=== PATIENT | female | born 1935 | race Caucasian/White ===

== ENCOUNTER 2023-01-22 13:12 | Day surgery (SDC) | payer MEDICARE ==
[2023-01-22] MEDS ORDERED: Decadron 4 MG INJ IV ONE (13:13)
[2023-01-22] MEDS ORDERED: LIDOCAINE HCL 1% 50 MG/5 ML VL PF IJ ONE (13:13)
[2023-01-22] MEDS ORDERED: Sodium Chloride 0.9(Preservative Free) 10 ML IJ ONE (13:13)
[2023-01-22] MEDS ORDERED: Depo-Medrol 40 MG/ML IM ONE (13:13)
[2023-01-22] MEDS ORDERED: DIPRIVAN 200 MG/20 ML IV ONE (16:06)
[2023-01-22] MEDS ORDERED: Lactated Ringers 1,000 ML IV ONE (16:31)
--- NOTE | 2023-01-22 17:04 | XRAY ---
Indication: Right L4-S1 transforaminal ALY. Intraoperative fluoroscopy provided for 24 seconds. 5 digital spot image submitted for interpretation demonstrates posterior needle tips projecting over the expected right L4 and L5 nerve roots. Small amount of contrast injected for needle tip placement. Correlate with intraoperative findings/report.
--- NOTE | 2023-01-22 17:07 | XRAY ---
Indication: Right piriformis injection. Intraoperative fluoroscopy provided for 10 seconds. Single digital spot image submitted for interpretation demonstrates posterior needle tip projecting over the expected right piriformis. Small amount of contrast injected for needle tip placement. Correlate with intraoperative findings/report.
--- NOTE | 2023-01-22 17:21 | XRAY ---
24 seconds of fluoroscopy was used in surgery for a right L4-S1 transforaminal ALY.
--- NOTE | 2023-01-22 17:21 | XRAY ---
10 seconds of fluoroscopy was used in surgery for a right piriformis injection.
== END 2023-01-22 16:38 | disposition home or self-care (01) ==
LOC: SDC-PAIN 13:12
PROVIDERS: ATTEND Psychiatry & Neurology Pain Medicine
DX: M54.16 Radiculopathy, lumbar region (principal); M79.18 Myalgia, other site; Z79.899 Other long term (current) drug therapy
CPT/HCPCS: 20552; 64483; 64484; 72100; 72170; 77002; 77003; 99100; J1030; J1100; J2001; J2704; Q9966

== ENCOUNTER 2023-03-05 09:35 | Day surgery (SDC) | payer MEDICARE ==
[2023-03-05] MEDS ORDERED: Depo-Medrol 40 MG/ML IM ONE (09:36)
[2023-03-05] MEDS ORDERED: BUPIVACAINE 0.5% VIAL IJ ONE (09:36)
[2023-03-05] MEDS ORDERED: DIPRIVAN 200 MG/20 ML IV ONE (11:53)
[2023-03-05] MEDS ORDERED: Lactated Ringers 1,000 ML IV ONE (15:01)
--- NOTE | 2023-03-05 20:46 | XRAY ---
Indication: Bilateral SI joint injection. Intraoperative fluoroscopy provided for 15 seconds. 4 digital spot image submitted for interpretation demonstrates posterior needle tip projecting over the expected left and right SI joint. Correlate with intraoperative findings/report.
--- NOTE | 2023-03-05 21:43 | XRAY ---
15 seconds of fluoroscopy was used in surgery for a bilateral sacroiliac joint injection.
== END 2023-03-05 12:17 | disposition home or self-care (01) ==
LOC: SDC-PAIN 09:35
PROVIDERS: ATTEND Psychiatry & Neurology Pain Medicine
DX: M46.1 Sacroiliitis, not elsewhere classified (principal)
CPT/HCPCS: 01992; 27096; 72202; 77002; 99100; G0260; J1030; J2704

== ENCOUNTER 2023-11-12 13:45 | Day surgery (SDC) | payer MEDICARE ==
[2023-11-12] MEDS ORDERED: BUPIVACAINE 0.5% VIAL IJ ONE (13:46)
[2023-11-12] MEDS ORDERED: Depo-Medrol 40 MG/ML IM ONE (13:46)
[2023-11-12] MEDS ORDERED: DIPRIVAN 200 MG/20 ML IV ONE (15:52)
[2023-11-12] MEDS ORDERED: Lactated Ringers 1,000 ML IV ONE (16:30)
--- NOTE | 2023-11-12 16:33 | XRAY ---
Indication: Left hip and greater trochanter bursa injection. Intraoperative fluoroscopy provided for 22 seconds. 2 digital spot image submitted for interpretation demonstrates needle tip projecting lateral to the left femur neck. Small amount of contrast collects around femur neck and lateral to greater trochanter for needle tip placement. Correlate with intraoperative findings/report.
--- NOTE | 2023-11-13 08:52 | XRAY ---
22 seconds of fluoroscopy was used in surgery for a left intra-articular hip and greater trochanteric bursa injection.
== END 2023-11-12 16:24 | disposition home or self-care (01) ==
LOC: SDC-PAIN 13:45
PROVIDERS: ATTEND Psychiatry & Neurology Pain Medicine
DX: M16.12 Unilateral primary osteoarthritis, left hip (principal)
CPT/HCPCS: 20610; 73502; 77002; J2704; Q9966

== ENCOUNTER 2024-01-18 15:07 | Emergency (ER) | payer MEDICARE ==
[2024-01-18] MEDS ORDERED: XYLOCAINE 1% HCL 20 ML MDV IJ ONE (15:08)
[2024-01-18 16:28] VITALS: TEMP 98.5
--- NOTE | 2024-01-18 18:42 | XRAY ---
CLINICAL HISTORY: pain COMPARISON: None. TECHNIQUE: Axial non-contrast CT scan of the brain was performed from the skull base to the high parietal region. One of the following dose reduction techniques were utilized for this exam: Automated exposure control, adjustment of the mA and/or kV according to patient size, use of iterative reconstruction. CTDI: 53.92 mGy, DLP: 964.1 mGy*cm. 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 No evidence of acute infarct, hemorrhage, or mass effect. Bilateral basal ganglia hyperdensities, likely nonspecific finding Ventricular System: Ventricles are normal in size and configuration. No evidence of hydrocephalus or ventricular enlargement. Subarachnoid Spaces: Normal sulci and cisterns. No evidence of subarachnoid hemorrhage or extra-axial fluid collections. Cerebellum and Brainstem: Normal size and density. No masses, lesions, or areas of abnormal signal. Orbits: Normal appearance of the optic nerves, and extraocular muscles. Post-surgical changes in both ocular globes. No evidence of orbital masses or abnormal signal. Sinuses: Clear paranasal sinuses. No evidence of sinusitis or mucosal thickening. Mastoid Air Cells: Clear mastoid air cells. No evidence of mastoiditis. Skull and Meninges: Normal skull morphology. In the posterior parietal soft tissues there is a 4-mm thick laminar subgaleal hematoma. IMPRESSION: 1. No acute intracranial findings. 2. No acute hemorrhagic pathology. 3. In the posterior parietal soft tissues there is a 4-mm thick laminar subgaleal hematoma. 4. Age-matched senile brain atrophic and chronic microvascular ischemic changes. Electronically Signed by: Latasha White MD. (01/18/2024 18:37:34 EDT)
--- NOTE | 2024-01-18 18:47 | ERPHSYRPT ---
- History of Present Illness Time Seen by Provider: 01/18/24 18:41 Source: patient, family Exam Limitations: no limitations Patient Subjective Stated Complaint: pt fell at her back patio hitting the back of her head on [place] and also injuring her left hip/upper leg Triage Nursing Assessment: Pt brought to the ER by her daughter, hypertensive, rates overall pain as 10/10, pt has fallen the past 3 days and does not usually fall, pt does not use anything for assistance in walking, laceration to the back of her head and pain to the left hip/upper leg, pulses normal, skin n/w/d, denies LOC, denies N&V, pt is not on blood thinners, doesn't appear to be in any distress Physician History: pt fell three times in past few days and daughter brought her in. No LOC. has lac back of head. No blood thinners has neck pain Discussed risk/benefit with pt and family of CT head and c spine, Left hip and x-ray cbc cmp, lactate, EKG, Trop, UA and they wish to proceed so these are ordered. results discussed. chest and abd nontender without peritoneal signs. Full ROM without pain, all ext except left hip fundi benign and visual hillman intact. Occurred: this afternoon Reason for Fall: unknown, lost balance, slipped, tripped, fell from standing pos Injuries/Pain Location: head, neck, lower extremity Loss of Consciousness: no loss of consciousness Quality: sharpness Severity of Pain-Max: moderate Severity of Pain-Current: moderate Modifying Factors: Improves With: immobilization, movement Associated Symptoms (Fall): denies symptoms Allergies/Adverse Reactions: Sulfa (Sulfonamide Antibiotics) Allergy (Verified 01/18/24 16:28) Home Medications: Amlodipine Besylate 10 mg [Norvasc 10 MG] 10 mg PO DAILY 01/06/17 [History] Gabapentin 800 mg PO DAILY 01/06/17 [History] Omeprazole 40 mg PO DAILY 01/06/17 [History] Pravastatin Sodium 40 mg PO HS 01/06/17 [History] Magnesium Oxide [Magnesium] 250 mg PO HS 01/18/24 [History] Hx Influenza Vaccination/Date Given: Yes Hx Pneumococcal Vaccination/Date Given: Yes Travel Risk - International Travel Have you traveled outside of the country in past 3 weeks: No - Emerging Infectious Disease Are you exhibiting symptoms associated with any current EIDs: No - Review of Systems Constitutional: No Fever, No Chills Eyes: No Symptoms Ears, Nose, & Throat: No Symptoms Respiratory: No Cough, No Dyspnea Cardiac: No Chest Pain, No Edema, No Syncope Abdominal/Gastrointestinal: No Abdominal Pain, No Nausea, No Vomiting, No Diarrhea Genitourinary Symptoms: No Dysuria Musculoskeletal: Fall, Injury, Joint Pain, No Back Pain, No Neck Pain Skin: No Rash Neurological: No Symptoms, No Dizziness, No Focal Weakness, No Sensory Changes Psychological: No Symptoms Endocrine: No Symptoms Hematologic/Lymphatic: No Symptoms Immunological/Allergic: No Symptoms All Other Systems: Reviewed and Negative - Past Medical History Pertinent Past Medical History: Yes Cardiac History: Hypertension GI Medical History: GERD Other Medical History: restless leg - Past Surgical History Past Surgical History: Yes Gastrointestinal: Appendectomy, Cholecystectomy Female Surgical History: Hysterectomy Other Surgical History: breast cancer. tubal - Social History Smoking Status: Never smoker Exposure to second hand smoke: No Drug Use: none - Social Determinants of Health Will the patient participate in the screening: Yes Do you worry about a steady place to live?: No Do you have any problems with any of the following?: No known problems In the past 12 months,have you had to go without utilities?: No Transportation Issues: No Has anyone in your support network made you feel unsafe?: No Have you or anyone in your house had to go without enough: No - Nursing Vital Signs Nursing Vital Signs: Initial Vital Signs Temperature 98.5 F 01/18/24 16:12 Pulse Rate 78 01/18/24 16:12 Blood Pressure 148/85 01/18/24 16:12 O2 Sat by Pulse Oximetry 98 01/18/24 16:12 Pain Scale Pain Intensity 8 - [place] Coma Score Best Eye Response (Beth): (4) open spontaneously Best Verbal Response (Beth): (5) oriented Best Motor Response ([place]): (6) obeys commands Beth Total: 15 - Physical Exam General Appearance: no apparent distress, alert Head Injury: no evidence of injury, lacerations Eye Exam: PERRL/EOMI ENT Exam: airway nml Neck Exam: trachea midline, normal inspection, limited range of motion, pain on movement of neck, tenderness Respiratory/Chest Exam: normal breath sounds, No chest tenderness, No respiratory distress Cardiovascular Exam: normal heart sounds, regular rate/rhythm Gastrointestinal Exam: soft, No tenderness, No distention, No guarding, No ecchymosis Rectal Exam: deferred Back Exam: normal inspection, No vertebral tenderness Extremity Exam: normal inspection, pelvis stable, bony point tenderness, evidence of injury, hip tenderness, No deformities Peripheral Pulses: carotid (R): 2+, carotid (L): 2+, femoral (R): 2+, femoral (L): 2+, dorsalis-pedis (R): 2+, dorsalis-pedis (L): 2+ Neurologic Exam: alert, oriented x 3, cooperative, 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 ) - Radiology Exams Left Hip X-ray Interpretation: Interpreted by me, Reviewed by me, Other (DJD but nonweight bearing suspect occult Fx. ) - CT Exams Head CT Interpretation: Tele-radiologist Report, No/Intracranial Hemorrhag, Other (microvasc changes and scalp hematoma) Left Lower Extremity CT Interpretation: Tele-radiologist Report, Other (possible avulsion fx/ DJD) Cervical Spine CT Interpretation: Tele-radiologist Report, No Fracture, Other (DJD Gr 1 Spondy) Ordered Tests: Active Orders 24 hr Category Date Time Status EKG-ER Only STAT Care 01/18/24 18:50 Active CERVICAL SPINE WO CONTRAST [CT] Stat Exams 01/18/24 18:59 Completed HEAD WITHOUT CONTRAST [CT] Stat Exams 01/18/24 17:42 Completed HIP UNI (2V) INCL PEL IF DONE Stat Exams 01/18/24 17:43 Completed LOWER EXTREMITY WO CONTRAST [CT] Stat Exams 01/18/24 19:04 Completed CBC W DIFF Stat Lab 01/18/24 19:25 Completed CMP Stat Lab 01/18/24 19:25 Completed Lactic Acid Stat Lab 01/18/24 19:20 Completed TROPONIN Q4H Lab 01/18/24 19:25 Completed TROPONIN Q4H Lab 01/18/24 23:00 Ordered TROPONIN Q4H Lab 01/19/24 03:00 Ordered UA W/RFX UR CULTURE Stat Lab 01/18/24 20:04 Completed Medication Summary Discontinued Medications Generic Name Dose Route Start Last Admin Trade Name Zonia PRN Reason Stop Dose Admin Bacitracin Zinc Confirm 01/18/24 22:28 Bacitracin Packet 1 Each Pckt Administered 01/18/24 22:29 Dose 1 each .ROUTE .STK-MED ONE Diphtheria/Tetanus/Acell Pertussis 0.5 ml 01/18/24 22:12 Tdap --Diph,Pertuss(Acell),Tet Vac/Pf 0.5 Ml Vial IM 01/18/24 22:13 .ONCE ONE Lab/Rad Data: Laboratory Result Diagrams 01/18/24 19:25 01/18/24 19:25 Laboratory Results 01/18/24 01/18/24 01/18/24 Range/Units 20:04 19:25 19:25 WBC (3.98-10.04) x10^3/uL RBC (3.93-5.22) x10^6/uL Hgb (11.2-15.7) g/dL Hct (34.1-44.9) % MCV (79.4-94.8) fL MCH (25.6-32.2) pg MCHC (32.2-35.5) g/dL RDW (11.7-14.4) % Plt Count (182-369) x10^3/uL MPV (9.4-12.3) fL Gran % (34.0-71.1) % Immature Gran % (Auto) (0.001-0.429) % Nucleat RBC Rel Count (0.00-0.2) % Eos # (Auto) (0.04-0.36) x10^3/uL Immature Gran # (Auto) (0.001-0.031) x10^3u/L Absolute Lymphs (auto) (1.18-3.74) x10^3/uL Absolute Monos (auto) (0.24-0.86) x10^3/uL Absolute Nucleated RBC (0.00-0.012) x10^3u/L Lymphocytes % (19.3-51.7) % Monocytes % (4.7-12.5) % Eosinophils % (0.7-5.8) % Basophils % (0.1-1.2) % Absolute Granulocytes (1.56-6.13) x10^3/uL Basophils # (0.01-0.08) x10^3/uL Sodium 143 (135-145) mmol/L Potassium 3.9 (3.5-5.1) mmol/L Chloride 108 H (98-107) mmol/L Carbon Dioxide 24 (22-30) mmol/L Anion Gap 13.8 (5-15) MEQ/L BUN 19 H (7-17) mg/dL Creatinine 0.62 (0.52-1.04) mg/dL Estimated GFR 86.1 ML/MIN Glucose 97 (74-106) mg/dL Lactic Acid (0.4-2.0) Calcium 9.2 (8.4-10.2) mg/dL Total Bilirubin 0.30 (0.2-1.3) mg/dL AST 23 (14-36) U/L ALT 15 (0-35) U/L Alkaline Phosphatase 67 (38-126) U/L Troponin I < 0.012 (0.000-0.033) ng/mL Serum Total Protein 6.5 (6.3-8.2) g/dL Albumin 4.2 (3.5-5.0) g/dL Urine Color Yellow (Yellow) Urine Appearance Clear (Clear) Urine pH 5.5 (4.6-8.0) Ur Specific [place] 1.010 (1.005-1.030) Urine Protein Negative (Negative) Urine Glucose (UA) Negative (Negative) mg/dL Urine Ketones Trace A (Negative) Urine Blood Negative (Negative) Urine Nitrite Negative (Negative) Urine Bilirubin Negative (Negative) Urine Urobilinogen 0.2 (0.2) mg/dL Ur Leukocyte Esterase Negative (Negative) U Hyaline Cast (Auto) NONE SEEN (0-2) /LPF Urine Microscopic RBC 0-2 (0-5) /HPF Urine Microscopic WBC 0-2 (0-5) /HPF Ur Epithelial Cells None Seen (None Seen) /HPF Urine Bacteria None Seen (None Seen) /HPF Urine Culture Reflexed NO (NO) 01/18/24 01/18/24 Range/Units 19:25 19:20 WBC 8.1 (3.98-10.04) x10^3/uL RBC 3.72 L (3.93-5.22) x10^6/uL Hgb 11.3 (11.2-15.7) g/dL Hct 33.8 L (34.1-44.9) % MCV 90.9 (79.4-94.8) fL MCH 30.4 (25.6-32.2) pg MCHC 33.4 (32.2-35.5) g/dL RDW 13.6 (11.7-14.4) % Plt Count 151 L (182-369) x10^3/uL MPV 10.2 (9.4-12.3) fL Gran % 76.8 H (34.0-71.1) % Immature Gran % (Auto) 0.4 (0.001-0.429) % Nucleat RBC Rel Count 0.0 (0.00-0.2) % Eos # (Auto) 0.14 (0.04-0.36) x10^3/uL Immature Gran # (Auto) 0.03 (0.001-0.031) x10^3u/L Absolute Lymphs (auto) 1.11 L (1.18-3.74) x10^3/uL Absolute Monos (auto) 0.57 (0.24-0.86) x10^3/uL Absolute Nucleated RBC 0.00 (0.00-0.012) x10^3u/L Lymphocytes % 13.6 L (19.3-51.7) % Monocytes % 7.0 (4.7-12.5) % Eosinophils % 1.7 (0.7-5.8) % Basophils % 0.5 (0.1-1.2) % Absolute Granulocytes 6.25 H (1.56-6.13) x10^3/uL Basophils # 0.04 (0.01-0.08) x10^3/uL Sodium (135-145) mmol/L Potassium (3.5-5.1) mmol/L Chloride (98-107) mmol/L Carbon Dioxide (22-30) mmol/L Anion Gap (5-15) MEQ/L BUN (7-17) mg/dL Creatinine (0.52-1.04) mg/dL Estimated GFR ML/MIN Glucose (74-106) mg/dL Lactic Acid 0.7 (0.4-2.0) Calcium (8.4-10.2) mg/dL Total Bilirubin (0.2-1.3) mg/dL AST (14-36) U/L ALT (0-35) U/L Alkaline Phosphatase (38-126) U/L Troponin I (0.000-0.033) ng/mL Serum Total Protein (6.3-8.2) g/dL Albumin (3.5-5.0) g/dL Urine Color (Yellow) Urine Appearance (Clear) Urine pH (4.6-8.0) Ur Specific [place] (1.005-1.030) Urine Protein (Negative) Urine Glucose (UA) (Negative) mg/dL Urine Ketones (Negative) Urine Blood (Negative) Urine Nitrite (Negative) Urine Bilirubin (Negative) Urine Urobilinogen (0.2) mg/dL Ur Leukocyte Esterase (Negative) U Hyaline Cast (Auto) (0-2) /LPF Urine Microscopic RBC (0-5) /HPF Urine Microscopic WBC (0-5) /HPF Ur Epithelial Cells (None Seen) /HPF Urine Bacteria (None Seen) /HPF Urine Culture Reflexed (NO) - Progress Progress: improved, re-examined Counseled pt/family regarding: lab results, diagnosis, need for follow-up, rad results Medical Desision Making - Independent Historian Additional History obtained from: Family - Discussion of managment Reviewed:: Test results, Need for additional workup Agreed on:: Treatment plan, need for follow-up - Diagnostic Testing Diagnostic test were ordered, analyzed, and reviewed by me: Yes Radiological Interpretation: Interpreted by me, Reviewed by me, Teleradiologist Report - Risk of complications The pt has a mod risk of morbidity or mortality based on: Need for prescription drug management The pt has a high risk of morbidity or mortality based on: Decision regarding hospitilization or escalation of hosp level of care - Departure Departure Disposition: Home Clinical Impression: Laceration of scalp, Head injury due to trauma, Avulsion fracture of left hip, mild thrombocytopenia. , mild elevation BUN Condition: Good Critical Care Time: No Referrals: SON BOOTH FNP [Primary Care Provider] - Follow up/PCP as directed Instructions: Wound Care (DC), Laceration Repair With Stitches (DC), Hip fracture in adults - Discharge instructions, Concussion, Adult ED Additional Instructions: Followup with your Dr. for the hip injury/avulsion fracture and to recheck blood pressure and for slightly low platelet count and slightly elevated renal function test . Use the walker and for the next few days stay with someone of your family and only walk with assistance to avoid further falls. See your Dr. this week to recheck hip and head injury, and to set up physical therapy for gait training/ fall prevention. We are providing concussion instructions and even though the CT was OK, there can still be delayed effects especially in the first 24 hours. Return meantime if any concerns or symptoms, dizziness, headache or otherwise. The dressing can be removed tomorrow. continue to apply antibiotic ointment. Sutures can be removed by your DrViv in 5 days.
--- NOTE | 2024-01-18 19:22 | XRAY ---
Indication: Pain following fall. Comparison: November 03, 2023 AP pelvis and 2 view left hip unchanged again demonstrating osteopenia, bilateral hip degenerative arthropathy right greater than left, moderate low lumbar degenerative spondylosis, pelvic phleboliths, and moderate scattered vascular calcifications. No new/acute abnormalities.
[2024-01-18 19:27] LABS: Absolute Neutrophil Ct (ANC) 6.25 x10^3/uL (1.56-6.13); BASOPHIL % 0.5 % (0.1-1.2); Basophil (Absolute #) 0.04 x10^3/uL (0.01-0.08); Eosinophil % 1.7 % (0.7-5.8); Eosinophil (Absolute #) 0.14 x10^3/uL (0.04-0.36); Hematocrit 33.8 % (34.1-44.9); Hemoglobin 11.3 g/dL (11.2-15.7); IMMATURE GRAN # 0.03 x10^3u/L (0.001-0.031); IMMATURE GRAN % 0.4 % (0.001-0.429); Lymphocyte (Absolute #) 1.11 x10^3/uL (1.18-3.74); Lymphocytes % 13.6 % (19.3-51.7); Mean Cell Volume 90.9 fL (79.4-94.8); Mean Corpuscular Hemoglobin 30.4 pg (25.6-32.2); Mean Corpuscular Hgb Concent. 33.4 g/dL (32.2-35.5); Mean Platelet Volume 10.2 fL (9.4-12.3); Monocyte (Absolute #) 0.57 x10^3/uL (0.24-0.86); Neutrophil % 76.8 % (34.0-71.1); Platelet Count 151 x10^3/uL (182-369); Red Blood Count 3.72 x10^6/uL (3.93-5.22); Red Cell Distribution Width 13.6 % (11.7-14.4); White Blood Count 8.1 x10^3/uL (3.98-10.04)
--- NOTE | 2024-01-18 19:42 | XRAY ---
CLINICAL HISTORY: neck pain after fall COMPARISON: None. TECHNIQUE: Thin axial CT of the cervical spine was performed with sagittal and coronal reconstructions without contrast. One of the following dose reduction techniques was utilized for this exam: Automated exposure control, adjustment of the mA and/or kV according to patient size, and use of iterative reconstruction. CTDI:22.24mGy, DLP: 463.82mGy*cm. FINDINGS: Vertebrae: Abnormal bone density of C5-T1 vertebral bodies with lytic changes. Narrowed related disc spaces are seen. Grade 1 anteriorlithesis of C3 and C4 bodies. Facet Joints: Multilevel facet joints arthropathies, affecting related neural exit foramina. Soft Tissues: Normal appearance of the paraspinal soft tissues. No abnormal masses, fluid collections, or signs of inflammation. Vascular Structures: Significant calcific stensosis at origin of left CCA. Possible scarring/fibrosis in the right lung apex. IMPRESSION: 1. No acute traumatic injuries. 2. Abnormal bone density of C5-T1 vertebral bodies with lytic changes. Narrowed related disc spaces are seen. Further evaluation with a contrasted MRI is suggested. 3. Grade 1 anterior lithesis of C3 and C4 bodies. 4. Multilevel facet joints arthropathies, affecting related neural exit foramina. 5. Significant calcific stensosis at origin of left CCA. Suggest further evaluation. Electronically Signed by: Latasha White MD. (01/18/2024 19:37:57 EDT)
--- NOTE | 2024-01-18 19:50 | XRAY ---
CLINICAL HISTORY: let hip pain unable to walk after f COMPARISON: None. TECHNIQUE: Thin axial images non-contrast of the left hip joint were obtained along with coronal and sagittal reconstructions. One of the following dose reduction techniques were utilized for this exam: Automated exposure control, adjustment of the mA and/or kV according to patient size, and use of iterative reconstruction. FINDINGS: Tiny bony fragment at the left posterior acetabulum may represent a small avulsion fracture. 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 Normal size and configuration of both femoral heads with no evidence of fracture lines or signs of avascular necrosis. No evidence of joint effusion. Intact periarticular muscle groups with preserved inter-muscular fat planes. Grade 1 anterolisthesis of L4 over L5 and L5 over S1. IMPRESSION: 1. Tiny bony fragment at the left posterior acetabulum may represent a small avulsion fracture. 2. Mild Osteoarthritic changes of both hip and sacroiliac joints. 3. Grade 1 anterolisthesis of L4 over L5 and L5 over S1. 4. Suggest clinical correlation and follow-up if warranted. [facility] ER was called at [phone] at 6:41 PM PHYSICAL THERAPY ASST, 01/18/2024 and Bridgette Nurse was informed regarding the presence of Important Medical Findings in the report. Electronically Signed by: Latasha White MD. (01/18/2024 19:45:32 EDT)
[2024-01-18 20:00] LABS: ALBUMIN 4.2 g/dL (3.5-5.0); ANION GAP 13.8 MEQ/L (5-15); BILIRUBIN,TOTAL 0.3 mg/dL (0.2-1.3); Calcium 9.2 mg/dL (8.4-10.2); Creatinine 1 0.62 mg/dL (0.52-1.04); EST GLOMERULAR FILTRATION RATE 86.1 ML/MIN; Potassium 3.9 mmol/L (3.5-5.1); Total Protein 6.5 g/dL (6.3-8.2)
[2024-01-18 20:10] LABS: Appearance Clear (Clear); Bacteria None Seen /HPF (None Seen); Bilirubin Negative (Negative); Blood Negative (Negative); Epithelial Cells None Seen /HPF (None Seen); Glucose, Urine Negative (Negative); Hyaline Casts NONE SEEN /LPF (0-2); Ketones Trace (Negative); Leukocyte Esterase Negative (Negative); Nitrite Negative (Negative); Ph 5.5 (4.6-8.0); Protein,Urine Dip Negative (Negative); RBC 0-2 /HPF (0-5); Urobilinogen 0.2 mg/dL (0.2); WBC 0-2 /HPF (0-5)
[2024-01-18 21:39] VITALS: O2SAT 98
[2024-01-18] MEDS ORDERED: BACIGUENT PACKET ONE (22:28)
[2024-01-18] MEDS ORDERED: Adacel Vial IM ONE (22:32)
[2024-01-18] MEDS: Adacel Vial IM ONE (22:37)
[2024-01-18 22:41] VITALS: BP 142/77; PULSE 88; RESP 16
== END 2024-01-18 22:51 | disposition home or self-care (01) ==
LOC: ED 15:07
DX: S01.01XA Laceration without foreign body of scalp, initial encounter (principal); S09.90XA Unspecified injury of head, initial encounter; S32.492A Other specified fracture of left acetabulum, initial encounter for closed fracture; W18.30XA Fall on same level, unspecified, initial encounter; Y92.007 Garden or yard of unspecified non-institutional (private) residence as the place of occurrence of the external cause; D69.6 Thrombocytopenia, unspecified; R94.4 Abnormal results of kidney function studies; I10 Essential (primary) hypertension; Z79.899 Other long term (current) drug therapy; Z23 Encounter for immunization
CPT/HCPCS: 12002; 36415; 70450; 72125; 73502; 73700; 80053; 81001; 83605; 84484; 85025; 90471; 90715; 93005; 99284; A9270-GY

== ENCOUNTER 2024-08-11 11:26 | Day surgery (SDC) | payer MEDICARE ==
[2024-08-11] MEDS ORDERED: Sodium Chloride 0.9(Preservative Free) 10 ML IJ ONE (11:27)
[2024-08-11] MEDS ORDERED: methylPREDNISolone acetate IM ONE (11:27)
[2024-08-11] MEDS ORDERED: Lactated Ringers 1,000 ML IV ONE (14:39)
[2024-08-11] MEDS ORDERED: propofoL IV ONE (14:52)
[2024-08-11] MEDS ORDERED: MORPHINE SULFATE 2 MG INJ ONE (15:11)
--- NOTE | 2024-08-11 16:35 | XRAY ---
Indication: Caudal ALY. Intraoperative fluoroscopy provided for 46 seconds. 10 digital spot image submitted for interpretation demonstrates caudal needle tip projecting mid sacrum. Small amount of contrast injected for needle tip placement. Correlate with intraoperative findings/report.
--- NOTE | 2024-08-11 16:42 | XRAY ---
46 seconds of fluoroscopy was used in surgery for a caudal ALY.
== END 2024-08-11 15:44 | disposition home or self-care (01) ==
LOC: SDC-PAIN 11:26
PROVIDERS: ATTEND Psychiatry & Neurology Pain Medicine
DX: M54.16 Radiculopathy, lumbar region (principal)
CPT/HCPCS: 62323; 72220; J1010; J2270; J2704; Q9966

== ENCOUNTER 2025-01-26 08:47 | Day surgery (SDC) | payer MEDICARE ==
[2025-01-26] MEDS ORDERED: Sodium Chloride 0.9(Preservative Free) 10 ML IJ ONE (08:48)
[2025-01-26] MEDS ORDERED: propofoL IV ONE (10:55)
--- NOTE | 2025-01-26 11:58 | XRAY ---
Indication: Right L4-S1 transforaminal ALY. Intraoperative fluoroscopy provided for 22 seconds. 5 digital spot images submitted for interpretation demonstrates right posterior needle tips projecting over expected right L4 and L5 nerve roots. Small amount of contrast injected for needle tip placement. Correlate with intraoperative findings/report.
--- NOTE | 2025-01-26 12:32 | XRAY ---
22 seconds of fluoroscopy was used in surgery for a right L4-S1 transforaminal ALY.
[2025-01-26] MEDS ORDERED: Lactated Ringers 1,000 ML IV ONE (14:02)
== END 2025-01-26 11:30 | disposition home or self-care (01) ==
LOC: SDC-PAIN 08:47
PROVIDERS: ATTEND Psychiatry & Neurology Pain Medicine
DX: M54.16 Radiculopathy, lumbar region (principal)